=== PATIENT | male | born 2000 | race Two or more races ===

== ENCOUNTER 2021-06-27 22:35 | Emergency (ER) | payer SELFPAY ==
[2021-06-07 11:00] VITALS: BP 129/75
[~2021-06-27 22:35] MED LIST: ALBU0.63 NEB; ALBU2.5V8 IH; FLUT1DIS IH; MONT10TA49 PO; PRED-220 PO; PRED20TA PO
== END 2021-06-28 00:49 | disposition left against medical advice (07) ==
LOC: ER 22:35
DX: J45.909 Unspecified asthma, uncomplicated (principal); Z53.21 Procedure and treatment not carried out due to patient leaving prior to being seen by health care provider

== ENCOUNTER 2021-10-28 00:49 | Emergency (ER) | payer SELFPAY ==
[~2021-10-28] VITALS: Ht 167.6 cm; Wt 75.0 kg
[2021-10-28] MEDS ORDERED: IPRATRPIUM/ALBUTEROL 0.5/2.5MG 3 ML NEBU. NEB ONE (02:30)
[2021-10-28] MEDS ORDERED: IV NORMAL SALINE 1000ML BAG 1,000 ML IV ONE (02:30)
[2021-10-28] MEDS ORDERED: ALBUTEROL SULFATE 2.5 MG/3 ML NEBU. CONT NEB ONE (02:30)
[2021-10-28] MEDS ORDERED: methylPREDNISolone SOD SUCC PF 125 MG/2 ML VIAL. IV ONE (02:30)
--- NOTE | 2021-10-28 03:16 | PHYS DOC ---
Past Medical History Past Medical History: Asthma Additional Past Medical Histor: Eczema, vitiligo Past Surgical History: No Surgical History Smoking Status: Former Smoker Alcohol Use: None Drug Use: None Adult General Chief Complaint Chief Complaint: ASTHMA HPI HPI Patient is a 21 year old male presenting to the emergency department for evaluation of worsening dyspnea. Patient has a history of asthma. He says that he has had a nonproductive cough but no fevers chills nausea vomiting or other systemic symptoms. He had tried using his inhaler shortly prior to coming here but says it did not help much. He denied prior intubation or ICU admissions to [facility]. He does appear quite dyspneic but is nontoxic with an oxygen saturation of 97%. Review of Systems Review of Systems Constitutional: Denies fever or chills [] Eyes: Denies change in visual acuity, redness, or eye pain [] HENT: Denies nasal congestion or sore throat [] Respiratory: + cough, shortness of breath [] Cardiovascular: No additional information not addressed in HPI [] GI: Denies abdominal pain, nausea, vomiting, bloody stools or diarrhea [] : Denies dysuria or hematuria [] Musculoskeletal: Denies back pain or joint pain [] Integument: Denies rash or skin lesions [] Neurologic: Denies headache, focal weakness or sensory changes [] All other systems were reviewed and found to be within normal limits, except as documented in this note. Current Medications Current Medications Current Medications Medications (Trade) Dose Ordered Sig/Any Start Time Stop Time Status Last Admin Dose Admin Albuterol Sulfate (Ventolin Hfa) 1 puff PRN Q6HRS PRN 10/28/21 04:45 Albuterol Sulfate (Ventolin Neb Soln) 2.5 mg 1X ONCE 10/28/21 05:00 10/28/21 05:01 DC Albuterol/ Ipratropium (Duoneb) 3 ml 1X ONCE 10/28/21 02:30 10/28/21 02:31 DC 10/28/21 02:30 3 ML Methylprednisolone Sodium Succinate (SOLU-Medrol 125MG VIAL) 125 mg 1X ONCE 10/28/21 02:30 10/28/21 02:31 DC 10/28/21 02:48 125 MG Sodium Chloride 1,000 ml @ 1,000 mls/hr 1X ONCE 10/28/21 02:30 10/28/21 03:29 DC 10/28/21 03:00 1,000 MLS/HR Allergies Allergies Allergies Coded Allergies Type Severity Reaction Last Updated Verified No Known Drug Allergies 05/17/21 No Physical Exam Physical Exam Constitutional: Well developed, well nourished, no acute distress, non-toxic appearance. [] HENT: Normocephalic, atraumatic, bilateral external ears normal, oropharynx moist, no oral exudates, nose normal. [] Eyes: PERRLA, EOMI, conjunctiva normal, no discharge. [] Neck: Normal range of motion, no tenderness, supple, no stridor. [] Cardiovascular:Heart rate tachycardic with regular rhythm, no murmur [] Lungs & Thorax: Bilateral breath sounds diminished in all lung preciado with inspiratory and expiratory wheezing Abdomen: Bowel sounds normal, soft, no tenderness, no masses, no pulsatile masses. [] Skin: Warm, dry, no erythema, no rash. [] Back: No tenderness, no CVA tenderness. [] Extremities: No tenderness, no cyanosis, no clubbing, ROM intact, no edema. [] Neurologic: Alert and oriented X 3, normal motor function, normal sensory function, no focal deficits noted. [] Current Patient Data Vital Signs Vital Signs Date Time Temp Pulse Resp B/P (MAP) Pulse Ox O2 Delivery O2 Flow Rate FiO2 10/28/21 04:59 97.5 121 22 156/78 (104) 97 97.5 10/28/21 02:08 Room Air Lab Values Laboratory Tests Test 10/28/21 04:29 White Blood Count 12.7 x10^3/uL (4.0-11.0) H Red Blood Count 4.32 x10^6/uL (4.30-5.70) Hemoglobin 13.0 g/dL (13.0-17.5) Hematocrit 38.2 % (39.0-53.0) L Mean Corpuscular Volume 88 fL (79-100) Mean Corpuscular Hemoglobin 30 pg (25-35) Mean Corpuscular Hemoglobin Concent 34 g/dL (31-37) Red Cell Distribution Width 12.9 % (11.5-14.5) Platelet Count 235 x10^3/uL (140-400) Neutrophils (%) (Auto) 77 % (31-73) H Lymphocytes (%) (Auto) 13 % (24-48) L Monocytes (%) (Auto) 5 % (0-9) Eosinophils (%) (Auto) 5 % (0-3) H Basophils (%) (Auto) 1 % (0-3) Neutrophils # (Auto) 9.8 x10^3/uL (1.8-7.7) H Lymphocytes # (Auto) 1.6 x10^3/uL (1.0-4.8) Monocytes # (Auto) 0.6 x10^3/uL (0.0-1.1) Eosinophils # (Auto) 0.6 x10^3/uL (0.0-0.7) Basophils # (Auto) 0.1 x10^3/uL (0.0-0.2) Sodium Level 141 mmol/L (136-145) Potassium Level 3.3 mmol/L (3.5-5.1) L Chloride Level 106 mmol/L (98-107) Carbon Dioxide Level 28 mmol/L (21-32) Anion Gap 7 (6-14) Blood Urea Nitrogen 11 mg/dL (8-26) Creatinine 0.9 mg/dL (0.7-1.3) Estimated GFR (Cockcroft-Gault) 104.6 BUN/Creatinine Ratio 12 (6-20) Glucose Level 119 mg/dL (70-99) H Calcium Level 7.7 mg/dL (8.5-10.1) L Total Bilirubin 0.2 mg/dL (0.2-1.0) Aspartate Amino Transferase (AST) 27 U/L (15-37) Alanine Aminotransferase (ALT) 24 U/L (16-63) Alkaline Phosphatase 101 U/L (46-116) Total Protein 6.9 g/dL (6.4-8.2) Albumin 2.9 g/dL (3.4-5.0) L Albumin/Globulin Ratio 0.7 (1.0-1.7) L Influenza Type A Antigen Negative (NEGATIVE) Influenza Type B Antigen Negative (NEGATIVE) SARS-CoV-2 Antigen (Rapid) Negative (NEGATIVE) Laboratory Tests 10/28/21 04:29 Laboratory Tests 10/28/21 04:29 EKG EKG [] Radiology/Procedures Radiology/Procedures [] Course & Med Decision Making Course & Med Decision Making Patient is suffering from an acute asthma exacerbation. I will check labs chest x-ray treat with IV Solu-Medrol and multiple breathing treatments and reassess. Patient did require multiple breathing treatments including a continuous treatment but this improved his symptoms significantly as his aeration improved significantly and his lungs and wheezing had almost completely resolved. Patient has an oxygen saturation of 98% on room air and his heart rate improved to 100. Patient said he feels much better and is asking to go home. Given patient appears well with normal vital signs benign physical exam and work-up and is asking to go home I will discharge him in stable condition. I told him to follow with his primary care provider within 2 days for recheck and come back to emergency department sooner with worsening pain shortness of breath or other general concerns. Patient aware and agreeable with plan and verbalized understanding of the above instructions. Of note patient is inquiring about antibiotics I discussed the risk and benefits of antibiotics and he said he wants to have antibiotics despite its potential of not helping. His chest x-ray does not appear to show definite infiltrate but has not been read by the radiologist but I will go ahead and give him Zithromax. Dragon Disclaimer Dragon Disclaimer This electronic medical record was generated, in whole or in part, using a voice recognition dictation system. Departure Departure Impression: Primary Impression: Asthma exacerbation Disposition: 01 HOME / SELF CARE / HOMELESS Condition: STABLE Referrals: UNKNOWN PCP NAME (PCP) Patient Instructions: Asthma, Adult Scripts Azithromycin (ZITHROMAX) 250 Mg Tablet 1 PKG PO UD, #6 TAB Prov: MOISES SUTTON DO 10/28/21 Prednisone (PREDNISONE) 50 Mg Tablet 1 TAB PO DAILY, #4 TAB Prov: MOISES SUTTON DO 10/28/21 Albuterol Sulfate (Proair Hfa) 8.5 Gm Hfa.aer.ad 2 PUFF IH PRN Q4-6HRS PRN for wheezing for 21 Days, #1 INHALER 0 Refills Prov: MOISES SUTTON DO 10/28/21 MOISES SUTTON DO October 28, 2021 03:16
[2021-10-28 04:37] LABS: BASO # 0.1 x10^3/uL (0.0-0.2); BASO % 1 % (0-3); EOS # 0.6 x10^3/uL (0.0-0.7); EOS % 5 % (0-3); HEMATOCRIT 38.2 % (39.0-53.0); LYMPH # 1.6 x10^3/uL (1.0-4.8); LYMPH % 13 % (24-48); MEAN CORPUSCULAR HEMOGLOBIN 30 pg (25-35); MEAN CORPUSCULAR HGB CONC 34 g/dL (31-37); MEAN CORPUSCULAR VOLUME 88 fL (79-100); MONO # 0.6 x10^3/uL (0.0-1.1); MONO % 5 % (0-9); NEUT # 9.8 x10^3/uL (1.8-7.7); NEUT % 77 % (31-73); PLATELET COUNT 235 x10^3/uL (140-400); RED BLOOD COUNT 4.32 x10^6/uL (4.30-5.70); RED CELL DISTRIBUTION WIDTH 12.9 % (11.5-14.5); WHITE BLOOD COUNT 12.7 x10^3/uL (4.0-11.0)
[2021-10-28] MEDS ORDERED: ALBUTEROL SULFATE 8GM INHALER. INH PRN (04:45)
[2021-10-28 04:53] LABS: INFLUENZA A PATIENT NEGATIVE (NEGATIVE); INFLUENZA B PATIENT NEGATIVE (NEGATIVE)
[2021-10-28 04:59] VITALS: BP 156/78
[2021-10-28] MEDS ORDERED: ALBUTEROL SULFATE 2.5 MG/3 ML NEBU. NEB ONE (05:00)
[2021-10-28 05:01] LABS: CALCIUM 7.7 mg/dL (8.5-10.1); CREATININE 0.9 mg/dL (0.7-1.3); GFR 104.6; POTASSIUM 3.3 mmol/L (3.5-5.1)
[2021-10-28 05:03] LABS: ALBUMIN 2.9 g/dL (3.4-5.0); ALBUMIN/GLOBULIN RATIO 0.7 (1.0-1.7); TOTAL BILIRUBIN 0.2 mg/dL (0.2-1.0); TOTAL PROTEIN 6.9 g/dL (6.4-8.2)
[2021-10-28] MEDS ORDERED: PRED50TA PO (06:01)
[2021-10-28] MEDS ORDERED: ALBU2.5V8 IH (06:01)
[2021-10-28] MEDS ORDERED: AZIT250T PO (06:01)
--- NOTE | 2021-10-28 12:23 | RAD ---
XR CHEST 1V Clinical Indication: Reason: soa, cough x 2 days / Spl. Instructions: / History: Comparison: [facility] chest June 06, 2021. Findings: The cardiomediastinal silhouette is normal. Lungs are clear. There is no pneumothorax. No pleural eff usion is appreciated. No acute bone abnormality. IMPRESSION: No acute cardiopulmonary process. Electronically signed by: Enzo Basilio MD (10/28/2021 5:44 AM) [facility]
== END 2021-10-28 06:22 | disposition home or self-care (01) ==
LOC: ER 00:49
DX: J45.901 Unspecified asthma with (acute) exacerbation (principal); Z20.822 Contact with and (suspected) exposure to COVID-19; Z87.891 Personal history of nicotine dependence
CPT/HCPCS: 36415; 71045; 80053; 85025; 87428; 94640; 94644; 94760; 96361; 96374; 99285; J2930; J7030; J7613; 94664